=== PATIENT | male | born 1975 | race Caucasian/White ===

== ENCOUNTER → 2018-01-06 | Day surgery (SDC) | payer OTHER ==
[~2018-01-06] VITALS: Ht 193 cm; Wt 104.3 kg
[~2018-01-06] MED LIST: PERCOCET 5-3251 EACH PO
--- NOTE | 2018-01-06 13:28 | Operative Report ---
Operative/Inv Procedure Report Surgery Date: 01/06/18 Name of Procedure: Standard umbilical hernia repair with primary closure Pre-Operative Diagnosis: Umbilical hernia Post-Operative Diagnosis: Same Estimated Blood Loss: scant Surgeon/Claims Representative: Gavin GORDON,Mekhi Poole/Leeroy GILL Anesthesia: laryngeal mask airway Implants: None Operative/Procedure Note Note: After informed consent patient brought to the operating room and laid supine. Gen. anesthesia obtained and the abdomen was prepped and draped. The periumbilical tissues were infiltrated with a cocktail local anesthesia. A curvilinear incision was made sharply. We dissected down to the umbilical stalk and circumferentially dissected it bluntly. The stock was then transected with cautery, thus exposing the defect. The hernia sac was circumferentially dissected down to level of fascia and incised the neck with cautery. Contents were then reduced. The resultant defect was 1.5 cm. I elected to close it primarily. The fascia was then closed with interrupted 0 Maxon sutures. Wound was irrigated with saline. The umbilical stalk re-created with 3-0 Vicryl. Incision was then closed in layers of Vicryl. Sterile dressings were applied. Sponge and needle counts are correct CC: Karen Burkett DO
== END ==
LOC: STS 03:26
DX: K42.9 Umbilical hernia without obstruction or gangrene (principal)
CPT/HCPCS: C9399; J0131; J0690; J1200; J2250